=== PATIENT | male | born 1990 | race Caucasian/White ===

== ENCOUNTER 2019-11-20 22:28 | Emergency (ER) | payer OTHER, MEDICAID, SELFPAY ==
[2019-11-20 22:29] VITALS: BP 140/49; PULSE 90; RESP 16; TEMP 36.9; O2SAT 97; BMI 30.2
--- NOTE | 2019-11-20 22:43 | ED.VIS.HA ---
History of Present Illness Chief Complaint: General Illness Detail of Chief Complaint: headache Informant: Patient Onset: Today Context: Gradual Timing: Intermittent Quality: Similar Prior Headaches - aching Location: bitemporal Current Severity: Mild Maximum Severity: Moderate Worsened by: nothing Relieved by: nothing but hasn't taken any medications yet Associated Symptoms: Negative for: Fever, Nausea, Vomiting, Sore Throat, Sinus Pressure, Numbness, Tingling, Preceding Aura, Visual Changes, Blurred Vision, Photophobia, Visual Loss Narrative: Patient presents with a mild headache, and upset stomach. He states he does not think they are related. He has had an upset stomach for 3 or 4 days, ever since he switched supplemental protein, he states now he is using a whey protein, he recently started working out again. Denies any injury to himself or his head. No nausea or vomiting diarrhea, melena, bright blood per rectum. He states he was at work tonight, he did not feel real well mostly because of the headache, he states he did not get much sleep beforehand. After a couple hours his boss checked on him and he said he still was feeling malaised and headache bilaterally, so he told him to go home and get a doctor's note. The patient states he is here for that and if he was not advised to get a note to prevent losing his job, he would have gone home and taking Tylenol and would not be here in the ER. He is healthy otherwise. No fevers, cough, sinus congestion, earache, sore throat, neck stiffness. Past Medical History - Allergies and Home Meds Allergies/Adverse Reactions: Allergies No Known Allergies Allergy (Verified 11/20/19 22:30) Primary Care Physician: NOT,DEFINED [Primary Care Provider] - Past Medical History: None Smoking Status: Current every day smoker Review of Systems General: Denies: Chills, Fever, Sweats Eyes: Denies: Visual changes - bilaterally, Diplopia ENT: Denies: Bilateral ear pain, Rhinorrhea, Sore throat Cardiovascular: Denies: Chest pain, Palpitations Respiratory: Denies: Dyspnea, Cough, Dyspnea on exertion Gastrointestinal: Denies: Abdominal pain, Nausea, Vomiting, Diarrhea, Melena, Hematochezia Genitourinary: Denies: Dysuria, Hematuria, Frequency Musculoskeletal: Denies: Neck pain, Back pain, Swelling, Extremity Pain Skin: Denies: Rash, Wounds Neurological: Reports: Headache. Denies: Weakness, Numbness Physical Exam Vital Signs/Narrative: Vital Signs Temp Pulse Resp BP Pulse Ox 11/20/19 22:29 98.4 F 90 16 140/49 H 97 Inital Vital Signs reviewed: Yes General: Well nourished, Well developed, - - Well-appearing, NAD Head: NC, AT Eyes: Perrl, EOMI ENT: Moist mucous membranes, No rhinorrhea, TM's clear, - - No temporal tenderness or palpable cord. Negative for: Nasal congestion, Sinus tenderness Neck: Supple, No Lymphadenopathy, Nontender, No Meningismus Cardiovascular: Regular rate, Regular rhythm, No murmurs Respiratory: No distress, CTA bilaterally, Chest nontender Abdomen: Soft, Nontender, Nondistended, Normal bowel sounds Back: Nontender, Normal Inspection Extremities: Nontender, No edema Skin: Normal color, No rash, No Trauma Neuro: Alert, Oriented x3, Cranial nerves II-XII grossly intact, Normal Strength, Normal Sensation, Normal DTR, Normal Gait Psychological: Normal affect, Normal Mood Diagnostic/Tx/Re-eval - Medical Decision Making Patient is reassured his exam is normal and he does not have any symptoms concerning for an acute medical emergency. He is fine going home with a doctor's note. He was offered a dose of Toradol and Mylanta beforehand which he accepted. ED Disposition - Plan for ED Patient: Disposition: Home or Assisted Living Diagnosis: Tension headache, Dyspepsia Instructions: ED Epigastric Pain [facility], ED CEPHALGIA Tension Headache Referrals: Doctor,Your [STAFF PHYSICIAN] - As Needed
[2019-11-20] MEDS: Mag Hydrox/Al Hydrox/Simeth 30 ML UDC PO (23:00)
[2019-11-20] MEDS: Ketorolac 30 MG/ML Syringe IM (23:00)
== END 2019-11-20 23:27 | disposition home or self-care (01) ==
LOC: ED 22:57
PROVIDERS: Emergency Provider Emergency Medicine
DX: G44.209 Tension-type headache, unspecified, not intractable (principal); K30 Functional dyspepsia; F17.200 Nicotine dependence, unspecified, uncomplicated
CPT/HCPCS: 96372; 99284

== ENCOUNTER 2019-12-01 21:28 | Emergency (ER) | payer OTHER, MEDICAID, SELFPAY ==
[2019-12-01 21:29] VITALS: BP 112/72; PULSE 89; RESP 14; TEMP 36.8; O2SAT 97; BMI 27.0
--- NOTE | 2019-12-01 22:03 | ED.VIS.GEN ---
History of Present Illness Chief Complaint: Back Informant: Patient Onset: Weeks Context: Gradual Onset Narrative: Patient is a 29-year-old male with no significant past medical history presenting with right lower back pain as well as thickening of the skin to his left hand. Patient states he had lower back pain for the past month or so. It radiates down his right leg and into his third through fifth toes. He states when he wakes up in the morning a lot times his third through fifth toes are numb. He denies any associated incontinence or saddle anesthesia. Patient states it is worse when he is standing and walking at work. He is hoping to have a work note allowing him to sit at work because he states he can do his job while standing. Patient denies any urinary symptoms. Has not taken anything for pain. In addition patient's notes he is thickening of the skin of his left lateral palm for couple months. Is been bothering him. He is not sure if it needs to be removed. He denies any splinter or injury there. States he does have calluses on his hands but is been there for a long time. He denies any other complaints at this time. Past Medical History - Allergies and Home Meds Allergies/Adverse Reactions: Allergies No Known Allergies Allergy (Verified 11/20/19 22:30) Primary Care Physician: Care Physician,No Primary [Primary Care Provider] - Past Medical History: None Surgical History: noncontributory Smoking Status: Current every day smoker Review of Systems General: Denies: Chills, Fever, Sweats Eyes: Denies: Visual changes - bilaterally, Diplopia ENT: Denies: Rhinorrhea, Sore throat Cardiovascular: Denies: Chest pain, Palpitations Respiratory: Denies: Dyspnea, Cough, Dyspnea on exertion Gastrointestinal: Denies: Abdominal pain, Nausea, Vomiting, Diarrhea, Melena, Hematochezia Genitourinary: Denies: Dysuria, Hematuria, Frequency Musculoskeletal: Reports: Back pain. Denies: Extremity Pain Skin: Reports: - - Thickening of the skin to the left hand. Denies: Rash, Wounds Neurological: Denies: Headache, Weakness, Numbness Physical Exam Vital Signs/Narrative: Vital Signs Temp Pulse Resp BP Pulse Ox 12/01/19 21:29 98.2 F 89 14 112/72 97 Inital Vital Signs reviewed: Yes General: Well nourished, Well developed, No Acute Distress Head: Normocephalic, Atraumatic Eyes: Perrl, EOMI ENT: Moist mucous membranes, No rhinorrhea Neck: Supple, Nontender Cardiovascular: Regular rate, Regular rhythm, No murmurs Respiratory: No distress, CTA bilaterally, Chest nontender Abdomen: Soft, Nontender, Nondistended, Normal bowel sounds Back: Nontender, Normal Inspection, - - No reproducible tenderness with palpation. Positive ipsilateral straight leg test. No pain with contralateral straight leg test. Strength and sensation intact in lower extremities. No step-off signs.. Negative for: CVA tenderness, Spinal tenderness Extremities: Nontender, No edema. Negative for: Tenderness, Calf Tenderness Skin: Normal color, No rash, - - Calluses on bilateral hands. Patient also has a 1 cm of the skin over the lateral hand near the palmar crease beneath the fifth finger. No foreign body palpated no signs of infection or abscess. Neurological: Alert, Oriented x3, Cranial nerves II-XII grossly intact, Normal Strength, Normal Sensation Psychological: Normal affect, Normal Mood Diagnostic/Tx/Re-eval - Medical Decision Making Patient is evaluated for 1 month of intermittent low back pain. It seems to be consistent with sciatica. Patient has a normal neurologic exam. Patient be placed on a Medrol Dosepak and muscle relaxer for symptoms. He is given a work note limiting prolonged standing and allowing him to sit until he is cleared by his PCP or occupational health. Patient will call his insurance to find a physician in his network. 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 Patient's hand concern seems to be a callus. He is counseled on warm soaks as well as lotion. Blood sugar which was normal. Patient is counseled on signs and symptoms requiring return to the emergency room. Patient verbalizes agreement and understand this plan. Patient discharged home in stable and improved condition. ED Disposition - Plan for ED Patient: Disposition: Home or Assisted Living Diagnosis: Sciatica of right side Instructions: ED Back Pain Acute or Chronic Prescriptions: cycloBENZAPRine HCl [Flexeril] 10 mg PO TID PRN #20 tab PRN Reason: Muscle Spasm Transmission Status: Pending to [id number] MethylPREDNISolone DosePak [Medrol DosePak] 4 mg PO UD #1 box Transmission Status: Pending to [id number] Referrals: Medina Melvin MD [STAFF PHYSICIAN] - Additional Instructions: Use anti-inflammatory such as ibuprofen/Motrin for back pain as well. For your hand, soak in warm water once or twice a day and use an emollient lotion such as Eucerin for eczema on your hands to help soften the area. Please double check with your insurance to the doctor that is in network.
[2019-12-01 22:05] LABS: Bedside Glucose 106 mg/dL (70-110)
== END 2019-12-01 22:21 | disposition home or self-care (01) ==
PROVIDERS: Emergency Provider Emergency Medicine
DX: M54.41 Lumbago with sciatica, right side (principal); R23.4 Changes in skin texture; F17.200 Nicotine dependence, unspecified, uncomplicated; Z79.899 Other long term (current) drug therapy
CPT/HCPCS: 82962; 99282